=== PATIENT | female | born 1970 | race Caucasian/White ===

== ENCOUNTER 2017-11-11 07:51 | Outpatient (CLI) | payer OTHER | END 2017-11-11 07:52 | disposition home or self-care (01) | LOC: BICMAMMO 07:51 | PROVIDERS: ATTEND Nurse Practitioner Family | DX: Z12.31 Encounter for screening mammogram for malignant neoplasm of breast (principal) | CPT/HCPCS: 77063; 77067 ==

== ENCOUNTER 2018-04-27 09:19 | Observation (INO) | payer OTHER ==
[2018-04-27 09:43] LABS: #Eosinphils 0.6 thou/uL (0.0-0.7); #Lymphocytes 2.2 thou/uL (1.20-3.40); #Monocytes 0.5 thou/uL (0.11-0.59); #Neutrophils 4.3 thou/uL (1.40-6.50); %Basophils 0.4 % (0.0-1.0); %Eosinophils 7.4 % (0.0-10.0); %Lymphocytes 28.9 % (21.0-51.0); %Monocytes 6.4 % (0.0-10.0); %Neutrophils 56.9 % (42.0-75.0); Hemoglobin 16.3 g/dL (12.0-16.0); Mean Corpuscular HGB CONC 35.3 g/dL (32.0-36.0); Mean Corpuscular Hemoglobin 30.5 pg (27.0-31.0); Mean Corpuscular Volume 86.4 fL (78.0-98.0); Mean Platelet Volume 8.5 fL (7.4-10.4); Platelet Count 249 thou/uL (130-400); Red Blood Cell (RBC) Count 5.35 mill/uL (4.20-5.40); White Blood Cell (WBC) Count 7.5 thou/uL (4.8-10.8)
--- NOTE | 2018-04-27 10:01 | RAD ---
RADIOGRAPH CHEST 1 VIEW: HISTORY: 47-year-old female with chest pain. FINDINGS: The visualized lung stevens are clear. The cardiomediastinal silhouette and hilar shadows are normal. The lateral costophrenic angles are sharp. The osseous structures appear normal. There is no pneu mothorax. IMPRESSION: Negative. eric POS: KAMLESH
[2018-04-27 10:17] LABS: Troponin I Less than 0.010 ng/mL (< 0.028)
[2018-04-27 10:42] LABS: ALT (SGPT) 13 U/L (8-55); AST (SGOT) 29 U/L (5-34); Albumin 4.5 g/dL (3.5-5.0); Alkaline Phosphatase 74 U/L (40-150); Anion Gap 15 mmol/L (10-20); BUN (Urea Nitrogen) 10 mg/dL (7.0-18.7); Bilirubin, Total 0.6 mg/dL (0.2-1.2); CK (CPK) 123 U/L (29-168); Calc. Creatinine Clearance 0 mL/min (70-130); Calcium 9.3 mg/dL (7.8-10.44); Carbon Dioxide 21 mmol/L (22-29); Chloride 105 mmol/L (98-107); Estimated GFR-MDRD 69; Globulin 3.9 g/dL (2.4-3.5); Glucose 106 mg/dL (70-105); Potassium 5.6 mmol/L (3.5-5.1); Protein, Total 8.4 g/dL (6.0-8.3); Sodium 135 mmol/L (136-145)
--- NOTE | 2018-04-27 12:24 | PDOC.FPRHP ---
- History of Present Illness Chief Complaint: chest pain History of Present Illness: 47 yo F with h/o of cardiac cath in 2009 here with acute onset of chest pain. Describes it as localized to three points on her chest both right and left side. Was walking when it started, lasting 10 seconds, no radiatiion, non exertional. Followed by chest pressure. She endorses a 3-4 year history of intermittent chest pressure that is described as bilaterally, dull pressure that is non-exertional. After her last cath in 2009, she did not continue to take prescribed medications aside from aspirin and never followed up with senior php developer or PCP. In the ED she also endorsed diaphoresis. - Allergies/Adverse Reactions Allergies Allergy/AdvReac Type Severity Reaction Status Date / Time diphenhydramine Allergy Verified 04/27/18 13:08 [From Benadryl] - Home Medications Medication Instructions Recorded Confirmed Type No Known 04/27/18 04/27/18 History - History PMHx:ai,heart burn PSHx: tonsillectomy, CSX x2, partial hysterctomy, BTL FHx:mom with heart problems in 40s, DM, [place] Social:25 pack year history - Review of Systems General: denies: fever/chills, weight/appetite/sleep changes Eyes: denies: vision changes ENT: denies: nasal congestion Respiratory: denies: cough, congestion, shortness of breath Cardiovascular: reports: chest pain, palpitation Gastrointestinal: denies: nausea, vomiting, diarrhea, constipation, GI bleeding Skin: denies: rashes, lesions Musculoskeletal: denies: tenderness, stiffness Neurological: denies: numbness, syncope - Vital signs BP: 142/90 HR: 73 RR: 16 Tmax: 98.4 Pox: 98% on RA Wt: 76 - Physical Exam Constitutional: NAD HEENT: normocephalic and atraumatic, PERRLA, EOMI Neck: supple Heart: RRR Lungs: CTAB, no respiratory distress, good air movement Abdomen: soft, non-tender Musculoskeletal: normal structure Skin: good turgor, capillary refill <2 seconds Heme/Lymphatic: no unusual bruising or bleeding Psychiatric: normal mood and affect, good judgment and insight FMR H&P: Results - Labs Result Diagrams: 04/27/18 09:37 04/27/18 09:37 Lab results: WBC 7.5 thou/uL (4.8-10.8) 04/27/18 09:37 Hgb 16.3 g/dL (12.0-16.0) H 04/27/18 09:37 Hct 46.2 % (36.0-47.0) 04/27/18 09:37 MCV 86.4 fL (78.0-98.0) 04/27/18 09:37 Plt Count 249 thou/uL (130-400) 04/27/18 09:37 Neutrophils % 56.9 % (42.0-75.0) 04/27/18 09:37 Sodium 135 mmol/L (136-145) L 04/27/18 09:37 Potassium 5.6 mmol/L (3.5-5.1) H 04/27/18 09:37 Chloride 105 mmol/L (98-107) 04/27/18 09:37 Carbon Dioxide 21 mmol/L (22-29) L 04/27/18 09:37 BUN 10 mg/dL (7.0-18.7) 04/27/18 09:37 Creatinine 0.88 mg/dL (0.6-1.1) 04/27/18 09:37 Glucose 106 mg/dL (70-105) H 04/27/18 09:37 Calcium 9.3 mg/dL (7.8-10.44) 04/27/18 09:37 Total Bilirubin 0.6 mg/dL (0.2-1.2) 04/27/18 09:37 AST 29 U/L (5-34) 04/27/18 09:37 ALT 13 U/L (8-55) 04/27/18 09:37 Alkaline Phosphatase 74 U/L (40-150) 04/27/18 09:37 Creatine Kinase 123 U/L (29-168) 04/27/18 09:37 CK-MB (CK-2) 1.0 ng/mL (0-6.6) 04/27/18 09:37 B-Natriuretic Peptide 15.3 pg/mL (0-100) 04/27/18 09:37 Serum Total Protein 8.4 g/dL (6.0-8.3) H 04/27/18 09:37 Albumin 4.5 g/dL (3.5-5.0) 04/27/18 09:37 - EKG Interpretation EKG: RBBB - Radiology Interpretation Chest x-ray Status: image reviewed by me, report reviewed by me Additional comment: normal FMR H&P: A/P - Problem List (1) ACS (acute coronary syndrome) Current Visit: Yes Status: Acute Code(s): I24.9 - ACUTE ISCHEMIC HEART DISEASE, UNSPECIFIED - Plan 47 yo F with PMH of [place] with cardiac cath with new chest pain 1. ACS r/o -troponins (-) x3 -due to h/o non-compliance and long period of no f/u, will consult cards in AM, appreciate recs -started aspirin -morphine prn for pain -hold AM lovenox in case cath 2. Suspected HTN? -unknown due to pt's no following with PCP -monitor BPs, consider starting anti-hypertensive dvt ppx: SCDs diet: NPO at midnight discussed with dr. domínguez FMR H&P: Upper Level - Pertinent history This is a 47 yo F here with complaint of years of dull substernal chest pain associated with exertion and a new sharp chest pain localized to three areas on her anterior chest that started this am and lasted for ~30 sec. She denies radiation of pain, SOB, peripheral symptoms, changes in vision, diaphoresis, or any other symptoms associated with this new pain. She took no meds following this pain. In 2009 she had a cardiac cath that showed multi vessel disease. At that time she opted for medical management. She was then lost to follow up and was non compliant with all medications. - Pertinent findings General A&O x3 HEENT atraumatic normocephalic CV RRR no murmur. Chest non TTP Resp CTA b/l Abd non tender, no distension Extremities full ROM, no edema Labs Trops negative x3. Trig 224 K 5.6 D Dimer <0.27 - Plan Date/Time: 04/27/18 1224 ISelvin DO, have evaluated this patient and agree with findings/plan as outlined by photography intern resident. Pertinent changes/additions are listed here. This is a 47 yo F being admitted with concern for CAD and ACS Atypical chest pain - low concern for ACS given negative trops - Pt has been non compliant with follow up and meds given known CAD, will consult cards for possible am cath or stress - HEART score of 4 CAD - consult cards as above for further management. While this may be appropriate for outpatient management pt is high risk of poor follow up given hx HTN - no formal diagnosis - continue to monitor and consider starting antihypertensives on dc PPx SCD Diet NPO at midnight Code Full Attending Addendum - Attending Addendum Date/Time: 04/27/18 2350 I personally evaluated the patient and discussed the management with Dr. Hahn and Yoshi. I agree with and repeated the History, Examination, Assessment and Plan documented above with any addition or exceptions noted below. Very pleasant patient. She tells me she had significant CAD when she had a cath previously but was told a stent was too dangerous. In light of this will consult cards in AM. NPO at midnight. We discussed smoking cessation at length.
[2018-04-27 13:09] LABS: Troponin I Less than 0.010 ng/mL (< 0.028)
[2018-04-27 13:10] VITALS: BMI 27.2
[2018-04-27] MEDS ORDERED: Acetaminophen 325 MG TAB PO PRN (14:11)
[2018-04-27] MEDS ORDERED: Ondansetron ODT 4 MG TAB PO PRN (14:11)
[2018-04-27 14:53] LABS: Cardiac Risk 5.3 (Less than 4.5)
[2018-04-27 16:24] LABS: Troponin I Less than 0.010 ng/mL (< 0.028)
[2018-04-27] MEDS: Lactated Ringer's 1,000 ML IV SCH (17:26)
[2018-04-27] MEDS ORDERED: Morphine 4 MG/ML VIAL SLOW IVP PRN (21:56)
[2018-04-28] MEDS: Lactated Ringer's 1,000 ML IV SCH (03:22)
--- NOTE | 2018-04-28 05:34 | PDOC.FM ---
- Subjective Subjective: 47 yo F here with concern for CAD and concern for unstable angina. No acute events over night. CP has resolved. No new symptoms this am. - Objective MAR Reviewed: Yes Vital Signs & Weight: Vital Signs (12 hours) Temp Pulse Resp BP BP Pulse Ox 04/28/18 03:22 97.7 F 70 16 143/55 H 95 04/28/18 03:09 98 04/27/18 20:00 98.3 F 79 12 04/27/18 19:48 98.7 F 70 12 143/82 H 98 Weight Weight 76.612 kg I&O: 04/26/18 04/27/18 04/28/18 06:59 06:59 06:59 Intake Total 480 Balance 480 Result Diagrams: 04/27/18 09:37 04/27/18 09:37 <Selvin Belle - Last Filed: 04/28/18 06:40> - Objective Vital Signs & Weight: Vital Signs (12 hours) Temp Pulse Resp BP Pulse Ox 04/28/18 14:42 97 04/28/18 11:19 98.5 F 61 22 H 141/68 H 100 04/28/18 07:53 97.7 F 70 16 137/73 99 Weight Weight 76.612 kg I&O: 04/27/18 04/28/18 04/29/18 06:59 06:59 06:59 Intake Total 720 Output Total 800 Balance 720 -800 Result Diagrams: 04/28/18 04:17 04/28/18 04:17 <Partha Hinkle - Last Filed: 04/28/18 17:08> Phys Exam - Physical Examination Constitutional: NAD HEENT: PERRLA, moist MMs, sclera anicteric Neck: full ROM Respiratory: clear to auscultation bilateral Cardiovascular: RRR, no significant murmur Gastrointestinal: soft, non-tender, no distention Musculoskeletal: no edema, pulses present Neurological: non-focal, normal sensation, moves all 4 limbs Psychiatric: normal affect, A&O x 3 Skin: no rash, normal turgor <Selvin Belle - Last Filed: 04/28/18 06:40> Dx/Plan (1) Atypical chest pain Code(s): R07.89 - OTHER CHEST PAIN Status: Acute (2) CAD (coronary artery disease) Code(s): I25.10 - ATHSCL HEART DISEASE OF [place] CORONARY ARTERY W/O ANG PCTRS Status: Acute Qualifiers: Coronary Disease-Associated Artery/Lesion type: [place] artery [place] vs. transplanted heart: [place] heart Associated angina: with unspecified angina Qualified Code(s): I25.119 - Atherosclerotic heart disease of [place] coronary artery with unspecified angina pectoris - Plan Plan: Atypical chest pain - anginal symptoms are at times associated with exertion and at other times at rest. Pt has known hx of CAD. - Cards consult pending today. Pt is currently NPO awaiting possible cath and or stress - Currently no symptoms. Normal tele strip CAD - Continue daily ASA - Will start statin given known CAD HTN - consistently above 140 systolic, will start MIRTA-I PPx SCD/ambulation Code Full Diet NPO Dispo Pt is stable and doing well. Expect cards evaluation today and possible dc this afternoon <Sevlin Belle - Last Filed: 04/28/18 06:40> Attending Addendum - Attending Addendum Date/Time: 04/28/18 8253 I personally evaluated the patient and discussed the management with Dr. Belle. I agree with the History, Examination, Assessment and Plan documented above with any addition or exceptions noted below. <Partha Hinkle - Last Filed: 04/28/18 17:08>
[2018-04-28 05:36] LABS: #Basophils 0.1 thou/uL (0.0-0.2); #Eosinphils 0.7 thou/uL (0.0-0.7); #Monocytes 0.6 thou/uL (0.11-0.59); #Neutrophils 3.4 thou/uL (1.40-6.50); %Basophils 0.9 % (0.0-1.0); %Lymphocytes 38.7 % (21.0-51.0); %Monocytes 7.6 % (0.0-10.0); %Neutrophils 43.8 % (42.0-75.0); Hemoglobin 14.4 g/dL (12.0-16.0); Mean Corpuscular HGB CONC 34.5 g/dL (32.0-36.0); Mean Corpuscular Hemoglobin 30.1 pg (27.0-31.0); Mean Corpuscular Volume 87.1 fL (78.0-98.0); Mean Platelet Volume 8.8 fL (7.4-10.4); Platelet Count 207 thou/uL (130-400); RBC Distribution Width 11.9 % (11.5-14.5); White Blood Cell (WBC) Count 7.8 thou/uL (4.8-10.8)
[2018-04-28 05:52] LABS: ALT (SGPT) 9 U/L (8-55); AST (SGOT) 10 U/L (5-34); Albumin 3.7 g/dL (3.5-5.0); Alkaline Phosphatase 65 U/L (40-150); Anion Gap 11 mmol/L (10-20); BUN (Urea Nitrogen) 14 mg/dL (7.0-18.7); Bilirubin, Total 0.3 mg/dL (0.2-1.2); Calc. Creatinine Clearance 112 mL/min (70-130); Carbon Dioxide 24 mmol/L (22-29); Chloride 107 mmol/L (98-107); Estimated GFR-MDRD 83; Globulin 2.1 g/dL (2.4-3.5); Glucose 103 mg/dL (70-105); Potassium 4.1 mmol/L (3.5-5.1); Protein, Total 5.8 g/dL (6.0-8.3); Sodium 138 mmol/L (136-145)
[2018-04-28] MEDS ORDERED: ADENOSINE 60 MG/20 ML VIAL ONE (08:07)
[2018-04-28] MEDS ORDERED: Lisinopril 5 MG TAB PO SCH (09:00)
[2018-04-28] MEDS ORDERED: Enoxaparin Sodium 40 MG/0.4 ML SYRINGE SC SCH (09:00)
--- NOTE | 2018-04-28 13:35 | CON ---
DATE OF CONSULTATION: 04/28/2018 HISTORY: Naz Bush is a 47-year-old white female admitted for further evaluation of chest discomfort. She was hospitalized here in 04/2009 complaining of up to 3 hours per day of chest discomfort. She apparently underwent a CT angiogram at [facility] and was found to have severe stenosis of the first diagonal and the second diagonal and mild to moderate disease of the circumflex. She therefore underwent cardiac catheterization on 04/30/2009. The left main was normal. The LAD had no flow limiting disease. Circumflex had a 50-70% ostial stenosis. There was a high first obtuse marginal with a 70% stenosis at the ostium. The ramus was large with a 60-70% stenosis at the ostium. The right coronary artery did not have any significant disease. She underwent an IVUS evaluation of these lesions and the proximal circumflex had an area of 3.76 mm2 in the ramus branch she had a minimal luminal area of 2.5 mm2. It was felt that neither of these lesions were significant. She apparently stopped taking all her medications after that time. She continued to have chest discomfort that may or may not be related to exertion. She then had an episode yesterday after she arrived at work at approximately 8: 30 a.m. She had 2 areas on the left side of her chest, 1 on the right side of the chest with very sharp pain lasting 10 seconds. She then had pressure all the way across her chest that lasted for at least 12-13 hours, was constant and unrelenting. There was no pleuritic component to the pain. She did not notice any palpable tenderness. PAST MEDICAL HISTORY: She denies any history of hypertension, diabetes or hypercholesterolemia. MEDICATIONS: None. ALLERGIES: BENADRYL. OPERATIONS: Tonsillectomy, x2, partial hysterectomy, tubal ligation. SOCIAL HISTORY: She smokes less than one half pack per day. FAMILY HISTORY: Mother had bypass surgery. REVIEW OF SYSTEMS: Twelve point review of systems is unremarkable. PHYSICAL EXAMINATION: VITAL SIGNS: Blood pressure 141/68, pulse 61. HEENT: PERRL. NECK: Supple. CHEST: Clear. CARDIAC: S1, S2 normal, without any S3, S4 or murmurs. Carotid upstrokes normal, without bruits. ABDOMEN: Normal bowel sounds, without tenderness, organomegaly. EXTREMITIES: Revealed no clubbing, cyanosis or edema. NEUROLOGIC: Grossly intact. LABORATORY DATA: EKG revealed normal sinus rhythm with possible left atrial enlargement, otherwise unremarkable. CBC is normal. D-dimer less than 0.27. Sodium 138, potassium 4.1, chloride 107, carbon dioxide 24, BUN 14, creatinine 0.75. Troponin I is normal x3. TSH is normal. Cholesterol 175, triglycerides 224, HDL 33, LDL 97. IMPRESSION: 1. Atypical chest discomfort with 12-13 hours of continual chest pressure, but totally normal cardiac enzymes. 2. History of coronary artery disease with finding of 50-70% ostial circumflex as well as 70% lesion in the first obtuse marginal and a 70% ramus lesion. With IVUS, both of these lesions were not critical. This was in 2008. 3. Smoker. 4. Positive family history. PLAN: The patient will undergo Cardiolite testing for her atypical chest discomfort. UNITED MEMORIAL MEDICAL CENTERNickie
--- NOTE | 2018-04-28 18:33 | NM ---
NUCLEAR MEDICINE CARDIAC MYOCARDIAL PERFUSION SPECT EJECTION FRACTION STUDY WALL MOTION CINE: 04/28/18 HISTORY: 47-year-old female smoker with coronary artery disease presents with chest pain. TECHNIQUE: Number of days: One Rest study: Tc99m sestamibi (Cardiolite) dose: 10.2 mCi Pharmacologic stress: adenosine dose: 42.7 Stress study: Tc99m sestamibi (Cardiolite) dose: 33.0 mCi FINDINGS: CARDIAC (MYOCARDIAL PERFUSION) SPECT There are no reversible myocardial perfusion defects. EJECTION FRACTION STUDY EF = 85% WALL MOTION CINE Normal. IMPRESSION: No evidence of reversible ischemia. YASMANI Lopez POS: KAMLESH
[2018-04-28 18:49] VITALS: BP 138/73; TEMP 98.7
[2018-04-28] MEDS ORDERED: Atorvastatin Calcium 40 MG TAB PO SCH (21:00)
--- NOTE | 2018-04-29 14:04 | DIS-2 ---
DATE OF ADMISSION: 04/27/2018 DATE OF DISCHARGE: 04/28/2018 ADMITTING ATTENDING: Vahid Johnson M.D. DISCHARGE ATTENDING: Partha Hinkle M.D. RESIDENT: Selvin Belle D.O. CONSULTATIONS: Wesley Santa M.D. of Cardiology. PROCEDURES: Nuclear stress test on 04/28/2018, finding no reversible myocardial perfusion defect, ejection fraction of 85%. No wall motion abnormalities. No evidence of irreversible ischemia. A chest x-ray on 2017 with finding of clear lung stevens. No acute processes. ADMITTING DIAGNOSES: Atypical chest pain and coronary artery disease, hypertension. DISCHARGE DIAGNOSES: Atypical chest pain and coronary artery disease, hypertension. DISCHARGE MEDICATIONS: Lipitor 40 mg p.o. daily, lisinopril 5 mg p.o. daily. DISCONTINUED MEDICATIONS: None. HISTORY OF PRESENT ILLNESS AND HOSPITAL COURSE: This is a 47-year-old female who has a known history of coronary artery disease identified on a cardiac catheterization approximately 8 years ago, who has since had a long history of a squeezing type chest pain associated with exertion, at times without exertion. After diagnosed with coronary artery disease, the plan was for medical management of this disease process. Unfortunately the patient was lost to follow up and has since been on no medications. She had dealt with this squeezing type chest pain without medication. On the day of admission, the patient had a discrete sharp anterior chest pain that lasted for approximately 30 seconds which caused her to be concerned for coronary causes. On evaluation , the patient had troponin's negative x3. Her EKG was reassuring for no acute coronary syndrome. However, because of the patient's noncompliance and history, the patient was observed and a stress test was ordered after consultation with Cardiology. The results of this test were as above. While admitted, it was noted that the patient consistently had a systolic blood pressure over 140. She was started on a low dose lisinopril with the plan to follow up with the primary care physician for further management of her disease. Additionally, the patient was restarted on a statin that had originally prescribed for her years ago; however, she had not been taking it. I spent a significant amount of time discussing with the patient the importance of follow up in order to prevent possible future myocardial infarction or stroke. DISCHARGE INSTRUCTIONS: 1. Location: Home. 2. Diet: Heart healthy. 3. Activity: Ad nadira. 4. Followup: With PCP within 1 week. KD
--- NOTE | 2018-05-04 10:49 | STRESS ---
Acquisition Time: 2018-04-28 14:40:52 Total Exercise Time: 00:04:00 Test Indications: ACS R/O Medications: Protocol: ADENOSINE Max HR: 104 BPM 60% of Pred: 173 BPM Max BP: 110/084 mmHG Max Work Load: 1.0 METS RESTING ECG: SINUS BRADYCARDIA AT 59 BPM SYMPTOMS: HEADACHE NORMAL BP RESPONSE ECTOPY: NONE ECG STRESS: NO SIGNIFICANT CHANGES INTERPRETATION: AWAIT NUCLEAR IMAGES FOR DEFINITIVE DIAGNOSIS Confirmed by AMY ROWELL ([id number]), graphics editor DANIELLE DRAKE ([id number]) on 05/04/2018 10:48:29 AM Referred By: MD Remigio RICKS Confirmed By:AMY ROWELL
== END 2018-04-28 19:09 | disposition home or self-care (01) ==
LOC: ERS 09:19 → 2SW 12:24
PROVIDERS: ADMIT Family Medicine; ATTEND Family Medicine
DX: R07.89 Other chest pain (principal); I25.10 Atherosclerotic heart disease of native coronary artery without angina pectoris; I10 Essential (primary) hypertension; Z88.8 Allergy status to other drugs, medicaments and biological substances; Z79.899 Other long term (current) drug therapy
CPT/HCPCS: 36415; 71045; 78452; 80053; 80061; 82553; 83880; 84443; 84484; 85025; 85379; 93005; 93017; 94760; 96360; 96361; A4216; A9500; G0378; J0153; J1650

== ENCOUNTER 2019-03-02 12:21 | Outpatient (CLI) | payer OTHER ==
--- NOTE | 2019-03-02 15:00 | RAD ---
RADIOGRAPH LUMBAR SPINE 2 VIEWS: DATE: 03/02/2019. HISTORY: A 48-year-old female with low back pain. FINDINGS: Both the AP and lateral views were obtained standing. There are 5 lumbar-type vertebrae. There is a levoscoliosis with apex of curvature at T12-L1. The degree of curvature is 15 degrees (as measured from inferior end plate of T10 to inferior end plate of L4). No spondylolisthesis. No high-grade d isk space narrowing at any level. There is high-grade degenerative facet hypertrophy at L4-5 and L5- S1. The bilateral SI joint spaces are maintained. Mild to moderate sclerosis of the left SI joint. No definite SI joint erosions, and no ankylosis. No syndesmophytes or bridging osteophytes. IMPRESSION: 1. High-grade facet osteoarthrosis at lower levels. 2. No evidence of high-grade degenerative disk disease. 3. Mild levoscoliosis centered at thoracolumbar junction. JN [] POS: TPC
== END 2019-03-02 12:22 | disposition home or self-care (01) ==
LOC: BICRAD 12:21
PROVIDERS: ATTEND Internal Medicine Rheumatology
DX: M54.89 Other dorsalgia (principal); Z15.89 Genetic susceptibility to other disease; M47.816 Spondylosis without myelopathy or radiculopathy, lumbar region; M41.85 Other forms of scoliosis, thoracolumbar region
CPT/HCPCS: 72100